=== PATIENT | female | born 1995 | race Caucasian/White ===

== ENCOUNTER 2016-11-11 19:37 | Emergency (ER) | payer OTHER ==
--- NOTE | ~2016-11-11 | ER ---
PATIENT'S NAME: BENITO HITCHCOCK [facility] AGE: 21 Y [address] ROOM: [place], [place] [address] LOCATION: [facility] ADMIT DATE: 11/11/2016 ER/Outpatient Report DISCHARGE DATE: 11/11/2016 FAMILY PHYSICIAN: Naldo Tafoya ATTENDING PHYSICIAN: Titi Juarez Time of Arrival: 1937 hours. Time of Evaluation: 2010 hours. CHIEF COMPLAINT: Abdominal pain. HISTORY OF PRESENT ILLNESS: This is a 21-year-old female, who presents to the ER, who states that she was diagnosed with strep throat last week and then on Wednesday she was diagnosed with mono. She states yesterday she developed some mid epigastric and right upper quadrant abdominal pain. She states it makes her feel nauseated, but she has had no vomiting and no diarrhea. No fever. No troubles with urination. She states her pain does not radiate into her back. She describes it as a dull sensation. She denies any other problems at this time. ALLERGIES: NO KNOWN ALLERGIES. MEDICATIONS: Please see medication list nurse's notes. PAST MEDICAL HISTORY: Negative. PAST SURGERIES: Appendectomy. SOCIAL HISTORY: Drinks alcohol occasionally. Denies any smoking use. REVIEW OF SYSTEMS: A 10-point review of systems was completed and was negative with the exception of those discussed in the HPI. PHYSICAL EXAMINATION: VITAL SIGNS: Height 5 feet and 5 inches stated, weight 89.0 kg taken, blood pressure is 138/79, pulse 73, respirations 16, temperature 97.5 degrees tympanically, and saturations 95% on room air. [place] Coma Score is 15. GENERAL: Alert, calm, well-developed female, in no acute distress. PATIENT'S NAME: BENITO HITCHCOCK [facility] AGE: 21 Y [address] ROOM: [place], [place] [address] LOCATION: [facility] ADMIT DATE: 11/11/2016 ER/Outpatient Report DISCHARGE DATE: 11/11/2016 FAMILY PHYSICIAN: Naldo Tafoya ATTENDING PHYSICIAN: Titi Juarez HEENT: Head: Normocephalic. Eyes: Pupils are equal and reactive to light. LUNGS: Clear to auscultation bilaterally. No wheezes or crackles. Normal respiratory effort. HEART: Regular rate and rhythm. No lifts, thrills, or murmurs. ABDOMEN: Soft. She does have some tenderness in her midepigastric region with palpation. She does not guard. She has no rebound tenderness. She has good bowel sounds throughout. No masses are palpated. EXTREMITIES: No clubbing, cyanosis, or edema. Has full range of motion of all limbs. LABORATORY DATA: CBC: White count is 5.8, hemoglobin is 13.0, platelets 218, and ANC is 2.1. CMS: BUN 11, creatinine is 0.8, sodium is 139, and potassium 4.1. Liver enzymes were normal. GFR was greater than 60. Amylase was 33. Lipase was 139. H. pylori was negative. Ultrasound was done of the right upper quadrant, does show a contracted gallbladder, but no sludge or stones were seen. Her spleen is mildly enlarged as well. IMPRESSION: Right upper quadrant abdominal pain, recent diagnosis of mono and strep throat. ASSESSMENT AND PLAN: We did monitor the patient here for quite some time. Her abdomen remained nonsurgical while she was here. The patient did not want anything for pain, but we did try GI cocktail to see if that would improve her symptoms, it did not. I am going to send her home with Amber to use as directed, to use for any severe pain. I advised her to partake in a low-fat diet, monitor symptoms closely, and I would like her to follow up with her primary care physician for followup care. The patient understands and agrees with care. RUBY LOPEZ PA-C FOR MD LAUREN ANGELES/yumi /[id number] d: t: 11/14/16 1322, OUTPATIENT REPORT
[2016-11-11 20:48] LABS: BASOPHIL % 0.5 %; EOSINOPHIL # 0.1 K/uL (0.0-0.5); EOSINOPHIL % 1.7 %; HEMATOCRIT 37.8 % (33.0-46.0); IMMATURE GRANULOCYTE % 0.3 %; LYMPHOCYTE # 2.9 K/uL (0.8-4.0); MCHC 34.4 gm/dL (32.0-36.5); MCV 84.4 fl (83.0-98.0); MONOCYTE # 0.6 K/uL (0.0-1.0); MONOCYTE % 10.6 %; MPV 8.5 fl (9.4-12.4); NEUTROPHIL # (ANC) 2.1 K/uL (1.8-7.8); NEUTROPHIL % 36.9 %; NRBC % 0 /100WBC (0-0.00); PLATELET COUNT 218 K/uL (150-450); RBC 4.48 M/uL (3.50-5.00); RDW-CV 12.1 % (11.9-14.6); WBC 5.8 K/uL (4.0-11.0)
[2016-11-11 21:04] LABS: ALBUMIN 3.4 gm/dL (3.5-5.0); ALK PHOS 65 IU/L (33-138); ALT 73 IU/L (12-78); ANION GAP 9.1 (10.0-19.0); AST 30 IU/L (10-40); BLOOD UREA NITROGEN 11 mg/dL (6-24); CALCIUM 8.6 mg/dL (8.5-10.5); CHLORIDE 107 mMol/L (96-110); CO2 27 mMol/L (22-32); CREATININE 0.8 mg/dL (0.5-1.1); ESTIMATED GFR (MDRD EQUATION) > 60; POTASSIUM 4.1 mMol/L (3.7-5.1); SODIUM 139 mMol/L (135-145); TOTAL BILIRUBIN 0.3 mg/dL (0.0-1.5); TOTAL PROTEIN 7.5 g/dL (6.0-8.4)
== END 2016-11-11 22:34 | disposition disaster alternative care site (69) ==
LOC: GMED 19:37
PROVIDERS: Emergency Medicine
DX: R10.11 Right upper quadrant pain (principal); B27.90 Infectious mononucleosis, unspecified without complication; J02.0 Streptococcal pharyngitis; Z90.49 Acquired absence of other specified parts of digestive tract